=== PATIENT | male | born 2000 | race Caucasian/White ===

== ENCOUNTER 2022-05-17 16:07 | Emergency (ER) | payer OTHER, SELFPAY | END 2022-05-17 17:34 | disposition home or self-care (01) | LOC: CSHERS 16:07 | DX: S13.4XXA Sprain of ligaments of cervical spine, initial encounter (principal); S29.012A Strain of muscle and tendon of back wall of thorax, initial encounter; W11.XXXA Fall on and from ladder, initial encounter | CPT/HCPCS: 72072; 72128; 72131 ==